=== PATIENT | female | born 1940 | race African-American/Black ===

== ENCOUNTER 2023-07-23 00:22 | Emergency (ER) | payer MEDICARE, MEDICAID ==
[2023-07-23] MEDS ORDERED: traMADol HCl 50 MG TAB ONE (02:51)
== END 2023-07-23 03:50 ==
LOC: NAV ERS 00:22
DX: S32.501A Unspecified fracture of right pubis, initial encounter for closed fracture (principal); I10 Essential (primary) hypertension; E03.9 Hypothyroidism, unspecified; F17.220 Nicotine dependence, chewing tobacco, uncomplicated; E78.5 Hyperlipidemia, unspecified; Z79.82 Long term (current) use of aspirin; Z79.899 Other long term (current) drug therapy; W18.30XA Fall on same level, unspecified, initial encounter
CPT/HCPCS: 70450; 71045; 72125; 72192